=== PATIENT | male | born 1950 | race Caucasian/White ===

== ENCOUNTER 2017-03-24 11:16 | Outpatient (CLI) | payer MEDICARE, MEDICAID ==
--- NOTE | 2017-03-24 12:56 | RAD ---
CHEST TWO VIEWS: History: Right rib pain without associated trauma. Comparison: 11-06-16 FINDINGS: Two views chest. There is cardiomegaly. Pulmonary vessels are slightly prominent. Costophrenic angle s are clear. Lungs are hyperinflated. Reticular nodular opacities are noted which are felt to be chr onic. No consolidation or mass. No pneumothorax or acute osseous abnormality. Old left clavicle frac ture is noted. Visualized right ribs do not reveal a fracture. IMPRESSION: 1. Chronic changes. 2. Hyperinflation. POS: [facility]
== END 2017-03-24 11:17 | disposition home or self-care (01) ==
LOC: MADRAD 11:16
PROVIDERS: ATTEND Obstetrics & Gynecology
DX: R07.81 Pleurodynia (principal); R06.9 Unspecified abnormalities of breathing
CPT/HCPCS: 71020

== ENCOUNTER 2020-10-01 11:43 | Outpatient (CLI) | payer MEDICARE, MEDICAID ==
--- NOTE | 2020-10-01 12:05 | RAD ---
XR Ankle Rt 3 View STANDARD INDICATION: Right ankle pain COMPARISON: None. FINDINGS: Bones: Enthesopathic changes seen off the calcaneus. No acute fracture is evident. Ankle mortise: Symmetric. Talar Dome: Intact. Subtalar joint: Normal. Visualized hindfoot: Normal. Periarticular soft tissues: There is diffuse edema involving the right foreleg and right foot soft ti ssues. There are Monckeberg calcifications within the soft tissues. IMPRESSION: 1. No acute fracture or subluxation demonstrated.
== END 2020-10-01 11:44 | disposition home or self-care (01) ==
LOC: MADRAD 11:43
PROVIDERS: ATTEND Physician Assistant
DX: M25.571 Pain in right ankle and joints of right foot (principal)